=== PATIENT | male | born 1990 | race African-American/Black ===

== ENCOUNTER 2016-12-26 12:31 | Emergency (ER) | payer SELFPAY ==
[2016-12-26] MEDS ORDERED: NO HOME MEDICATION XX (12:45)
[2016-12-26 12:46] LABS: URINE BILIRUBIN NEGATIVE (NEG); URINE BLOOD LARGE (NEG); URINE GLUCOSE (UA) NEGATIVE (NEG); URINE KETONE NEGATIVE (NEG); URINE LEUKOCYTE ESTERASE POSITIVE (NEG); URINE NITRITE NEGATIVE (NEG); URINE PROTEIN SMALL (NEG)
[2016-12-26 12:47] LABS: URINE APPEARANCE HAZY; URINE COLOR DARK YELLOW
[2016-12-26 13:00] LABS: URINE RBC 150-200 /[HPF] (0-5)
[2016-12-26 13:01] LABS: URINE EPITHELIAL CELLS 0-4 /[HPF] (0-10)
[2016-12-26] MEDS ORDERED: CIPRO500 M2 PO (13:35)
== END 2016-12-26 13:53 ==
LOC: EDMED 12:31
PROVIDERS: Emergency Medicine
DX: N39.0 Urinary tract infection, site not specified (principal); R31.9 Hematuria, unspecified